=== PATIENT | male | born 1940 | race Caucasian/White ===

== ENCOUNTER 2019-02-01 12:49 | Emergency (ER) | payer OTHER ==
[2019-02-01] MEDS ORDERED: LIDOCAINE 1% INJ 50 ML MDV IJ ONE (14:56)
[2019-02-01] MEDS ORDERED: TDAP [DIPH/PERTUSSIS/TET] 0.5 ML VIAL IM ONE ×2 (15:22→15:30)
== END 2019-02-01 16:34 | disposition home or self-care (01) ==
DX: S01.21XA Laceration without foreign body of nose, initial encounter (principal); G20 Parkinson's disease; R79.89 Other specified abnormal findings of blood chemistry; W01.198A Fall on same level from slipping, tripping and stumbling with subsequent striking against other object, initial encounter; Y93.01 Activity, walking, marching and hiking; Y92.89 Other specified places as the place of occurrence of the external cause; Y99.8 Other external cause status
CPT/HCPCS: 12013; 36415; 70450; 80048; 80076; 84484; 85025; 85730; 90471; 90715; 93005; 99284; J3490

== ENCOUNTER 2019-02-09 16:38 | Emergency (ER) | payer OTHER ==
[~2019-02-09] VITALS: Ht 175.3 cm; Wt 74.8 kg
[2019-02-09 16:50] VITALS: BP 124/74
--- NOTE | 2019-02-09 17:34 | NUR ---
Patient discharged to home in stable condition. Written and verbal after care instructions given. Patient verbalizes understanding of instruction.
== END 2019-02-09 17:35 | disposition home or self-care (01) ==
LOC: ER 16:43
DX: S01.81XD Laceration without foreign body of other part of head, subsequent encounter (principal); G20 Parkinson's disease; W01.0XXD Fall on same level from slipping, tripping and stumbling without subsequent striking against object, subsequent encounter